=== PATIENT | male | born 2000 | race Two or more races ===

== ENCOUNTER 2020-04-17 23:42 | Inpatient (IN) | payer MEDICAID, OTHER ==
[~2020-04-17] VITALS: Ht 165.1 cm; Wt 72.1 kg
[2020-04-18] VITALS (10 sets, daily range): BP systolic 119–138; BP diastolic 35–71
[2020-04-18] MEDS ORDERED: SODIUM CHLORIDE 0.9% 2,000 ML IV ONE (00:30)
[2020-04-18] MEDS ORDERED: ETOMIDATE (2MG/ML) 20ML VIAL IV ONE ×2 (00:46)
[2020-04-18] MEDS ORDERED: SUCCINYLCHOLINE CHLORIDE 20 MG/ML 10ML VIAL IV ONE ×2 (00:46)
[2020-04-18] MEDS ORDERED: MIDAZOLAM HCL 1MG/1ML-2 ML VIAL ONE (00:49)
[2020-04-18] MEDS ORDERED: PROPOFOL 100 ML IV ONE (00:51)
[2020-04-18 01:06] LABS: Basophils # (auto) 0 10 ^3/uL (0-0.2); Eosinophils # (auto) 0 10 ^3/uL (0-0.8); Hemoglobin 16.8 g/dL (13.5-17.5); Monocytes # (auto) 0.6 10 ^3/uL (0-1.3); Monocytes % (auto) 4.2 % (0.0-12.0)
[2020-04-18 01:08] LABS: Basophils % (auto) 0.3 % (0.0-2.0); Eosinophils % (auto) 0.1 % (0.0-7.0); Lymphocytes # (auto) 1.6 10 ^3/uL (0.4-5.4); Lymphocytes % (auto) 10.5 % (10.0-50.0); Mean Corpuscular Hemoglobin 26.5 pg (28.0-32.0); Mean Corpuscular Hgb Conc. 32.9 g/dL (32.0-36.0); Mean Corpuscular Volume 80.5 fL (80.0-100.0); Neutrophils # (auto) 12.7 10 ^3/uL (1.6-8.6); Neutrophils % (auto) 84.9 % (37.0-80.0); Nucleated Red Blood Cells % 0.1 %; Platelet Count (auto) 378 10^3/uL (140-450); Red Blood Cells 6.33 10^6/uL (4.5-5.90); Red Cell Distribution Width 13.7 % (11.8-14.3)
[2020-04-18] MEDS ORDERED: SODIUM BICARBONATE 8.4 % INJ 50ML VIAL IV ONE (01:13)
[2020-04-18] MEDS ORDERED: SODIUM BICARBONATE INFANT SYR 10 ML SYRG IV ONE (01:14)
[2020-04-18] MEDS ORDERED: AMIODARONE 450mg/250ml AE 250 ML IV ONE (01:14)
[2020-04-18 01:17] LABS: Anion Gap 12 (5-15); BUN/Creatinine Ratio 6.5; Blood Alcohol < 3.0 mg/dL (0-5); Blood Urea Nitrogen 10 mg/dL (7-18); Calcium 10.1 mg/dL (8.5-10.1); Carbon Dioxide 20 mmol/L (21-32); Chloride 106 mmol/L (98-107); GFR African American 74 mL/min; GFR Non-African American 62 mL/min; Glucose 126 mg/dL (74-106); Potassium 4.4 mmol/L (3.5-5.1); Sodium 138 mmol/L (136-145)
[2020-04-18 01:18] LABS: Acetaminophen < 2.0 ug/mL (10-30); Salicylate < 1.7 mg/dL (2.8-20.0)
[2020-04-18] MEDS ORDERED: NOREPINEPHRINE 8 MG/250ML KIT 250 ML IV ONE (01:18)
[2020-04-18 01:20] LABS: Alanine Aminotransferase 84 U/L (16-61); Alkaline Phosphatase 123 U/L (45-117); Aspartate Aminotransferase 44 U/L (15-37); Bilirubin, Total 1.2 mg/dL (0.2-1.0)
[2020-04-18] MEDS ORDERED: ACTIVATED CHARCOAL 50 GM/240 ML SOL ONE (01:29)
[2020-04-18] MEDS ORDERED: ONDANSETRON HCL 4 MG/2 ML VIAL ONE (01:29)
[2020-04-18] MEDS ORDERED: EPINEPHrine HCL 1 MG/10 ML SYRG ONE (01:37)
[2020-04-18] MEDS ORDERED: MIDAZOLAM DRIP 50 mg/50mL 50 ML IV ONE (01:58)
[2020-04-18 01:59] LABS: Alcohol, Urine < 3.0 mg/dL (0-10); Amphetamine Screen, Urine POSITIVE (NEGATIVE); Barbiturate Scree,Urine NEGATIVE (NEGATIVE); Benzodiazephine Screen, Urine NEGATIVE (NEGATIVE); Cannabinoid Screen, Urine POSITIVE (NEGATIVE); Cocaine Screen, Urine NEGATIVE (NEGATIVE); Opiate Scree,Urine POSITIVE (NEGATIVE); Phencyclidine Screen, Urine NEGATIVE (NEGATIVE); Urine Bacteria FEW /hpf (None Seen); Urine Blood Negative /uL (Negative); Urine Hyaline Cast MOD /lpf (0 - 2); Urine Mucus FEW (None Seen); Urine Specific Gravity 1.021 (1.001-1.035); Urine WBC 2 /hpf (0 - 3)
[2020-04-18] MEDS ORDERED: MIDAZOLAM HCL 5 MG/ML-1ML VIAL ONE (01:59)
[2020-04-18] MEDS ORDERED: MIDAZOLAM HCL 5 MG/ML-1ML VIAL IV ONE (02:00)
[2020-04-18] MEDS ORDERED: PHENYLEPHRINE IV 250 ML IV ONE (02:00)
[2020-04-18] MEDS ORDERED: NOREPINEPHRINE 8 MG/250ML KIT 250 ML IV SCH (02:34)
[2020-04-18] MEDS ORDERED: AMIODARONE 450mg/250ml AE 250 ML IV SCH (02:45)
[2020-04-18] MEDS ORDERED: AMIODARONE HCL 150 MG in D5W 5% 100 ML IV ONE (02:45)
[2020-04-18] MEDS: PHENYLEPHRINE IV 250 ML IV SCH ×3 (03:19→18:39)
[2020-04-18] MEDS: MIDAZOLAM DRIP 50 mg/50mL 50 ML IV SCH (03:27)
[2020-04-18] MEDS: PROPOFOL 100 ML IV SCH (03:30)
[2020-04-18 03:41] LABS: INR 1.06 (0.9-1.15); Partial Thromboplastin Time 28.5 sec (23.64-32.05)
--- NOTE | 2020-04-18 04:44 | NUR ---
Respiratory note: RETURNED FROM CT AT THIS TIME. PLACED PT BACK ON VENT WITH ORIGINAL SETTINGS, NO COMPLICATIONS.
[2020-04-18 05:41] LABS: Salicylate < 1.7 mg/dL (2.8-20.0)
[2020-04-18 05:50] LABS: Acetaminophen < 2.0 ug/mL (10-30)
[2020-04-18] MEDS: fentaNYL Drip 2500mCg/250mlNS 250 ML IV SCH (06:30)
[2020-04-18] MEDS ORDERED: DOXYCYCLINE 100MG/250ML 250 ML IV ONE (06:45)
[2020-04-18] MEDS ORDERED: MORPHINE SULF INJ 2 MG/ML SYRINGE 1ML IV PRN ×2 (06:45)
[2020-04-18] MEDS ORDERED: ACETAMINOPHEN 500 MG TAB PO PRN (06:45)
[2020-04-18] MEDS ORDERED: NITROGLYCERIN 0.4 MG SL TAB SL PRN (06:45)
[2020-04-18 06:54] LABS: Hematocrit 50.7 % (41.0-53.0); Mean Corpuscular Hgb Conc. 31.6 g/dL (32.0-36.0); Mean Corpuscular Volume 82.3 fL (80.0-100.0); Platelet Count (auto) 355 10^3/uL (140-450); Red Blood Cells 6.16 10^6/uL (4.5-5.90); White Blood Cell 28.6 10^3/uL (4.4-10.8)
[2020-04-18 06:57] LABS: Basophils % (manual) 0 (0.0-2.0); Blast Cells 0; Eosinophils % (manual) 0 (0-7); Myelocytes % 0; Promyelocytes % 0; Reactive Lymphocytes 0
[2020-04-18 07:19] LABS: Alanine Aminotransferase 252 U/L (16-61); Albumin 3.9 g/dL (3.4-5.0); Anion Gap 7 (5-15); Aspartate Aminotransferase 240 U/L (15-37); BUN/Creatinine Ratio 6.9; Blood Alcohol < 3.0 mg/dL (0-5); Blood Urea Nitrogen 12 mg/dL (7-18); Calcium 8.1 mg/dL (8.5-10.1); Carbon Dioxide 23 mmol/L (21-32); Chloride 110 mmol/L (98-107); GFR African American 65 mL/min; GFR Non-African American 54 mL/min; Glucose 177 mg/dL (74-106); Potassium 4.7 mmol/L (3.5-5.1); Sodium 140 mmol/L (136-145)
[2020-04-18 07:29] LABS: Alkaline Phosphatase 113 U/L (45-117); Bilirubin, Total 1.4 mg/dL (0.2-1.0); Magnesium 3.6 mg/dL (1.6-2.6); Total Protein 7.3 g/dL (6.4-8.2)
[2020-04-18 07:50] LABS: Band Neutrophils % (manual) 1; Lymphocytes % (manual) 6 (10.0-50.0); Metamyelocytes % 1; Monocytes % (manual) 9 (0-12)
[2020-04-18] MEDS: ENOXAPARIN SOD 40 MG/0.4 ML SYRINGE SC SCH (10:00)
[2020-04-18] MEDS ORDERED: CHOLECALCIFEROL (VITD3) 1,000UNIT=25mCg TAB PO SCH (10:00)
[2020-04-18] MEDS ORDERED: ASCORBIC ACID 1,000 MG TAB PO SCH (10:00)
[2020-04-18] MEDS ORDERED: ZINC SULFATE 220mg CAP or TAB PO SCH (10:00)
[2020-04-18] MEDS ORDERED: cefTRIAXone 1GM/50ML D5W 50 ML IV SCH (10:00)
[2020-04-18] MEDS ORDERED: DOXYCYCLINE 100 MG TAB/CAP PO SCH (10:00)
[2020-04-18] MEDS ORDERED: ALBUTEROL SULF HFA 90MCG INH 200DOSE IN SCH (14:00)
[2020-04-18] MEDS ORDERED: ACETAMINOPHEN 650 mg PER 20 mL UD ONE (14:02)
[2020-04-18] MEDS ORDERED: ACETAMINOPHEN 650 mg PER 20 mL UD PO PRN (14:15)
[2020-04-18] MEDS ORDERED: DEXTROSE (50%) 50ML SYRG IV ONE (15:17)
[2020-04-18] MEDS ORDERED: AMIODARONE HCL (50 MG/ ML) 3 ML VIAL IV ONE (15:17)
[2020-04-18] MEDS ORDERED: CALCIUM CHLOR(10%) 100MG/ML 10ML SYRINGE IV ONE (15:17)
[2020-04-18] MEDS ORDERED: SODIUM BICARBONATE 8.4% INJ 50ML SYRINGE IV ONE (15:17)
[2020-04-18] MEDS ORDERED: EPINEPHrine HCL 1 MG/10 ML SYRG IV ONE (15:17)
--- NOTE | 2020-04-18 17:22 | NUR ---
WOUND CARE NOTE: Wound care in to see patient due to intubation status and low Wilver score of 12, putting patient to high risk for skin breakdown. Patient is 19 years old male with admitting diagnosis of Cardiac Arrest Secondary to Drug Overdose. Patient is resting in bed #6. Patient is intubated, and mechanically ventilated. Patient appears to be in no pain using Lu Varela Faces Pain Scale. Skin assessment done with the assistance of student nurse videotape editor. No wound, no pressure injury noted. Patient has rectal tube in placed with liquid stools in tubing and in collection bag, minimal leak noted to perirectal area. Selina care given, applied Sure prep skin protectant to lower buttocks and perirectal area. Care pad changed. Repositioned patient for comfort facing his Rt side, redistributed pressure points with pillows. CHARLEY Vazquez and student nurse videotape editor at bedside. RECOMMENDATION: Nursing to continue with BID/PRN cleaning and application of Sure prep skin protectant to buttocks, perirectal area as preventative, frequent turning and repositioning schedule as condition permits, redistribute pressure points with pillows, elevate heels on pillows, continue monitoring by wound care while patient is intubated and has Wilver score of <18. Addendum: 04/18/20 at 1824 by Arpita Taylor RN Amended: Links added.
--- NOTE | 2020-04-18 17:25 | NUR ---
ICU Bed/Hospital bed; Called nieves Ng and requested to bring ICU bed or hospital bed for patient. Per Berenice no ICU bed available at this time but she will bring hospital bed.
[2020-04-18] MEDS ORDERED: ALBUTEROL SULF 2.5 MG/0.5ML(0.5%) NEB SOLN NEB PRN (20:15)
[2020-04-18] MEDS: SODIUM CHLORIDE 0.9% 1,000 ML IV SCH (21:37)
[2020-04-18] MEDS: PANTOPRAZOLE 40 MG/10 ML VIAL INJ IV SCH (22:18)
[2020-04-18] MEDS: levoFLOXacin 750MG 150 ML IV SCH (22:27)
[2020-04-19] VITALS (12 sets, daily range): BP systolic 100–162; BP diastolic 49–90
[2020-04-19] MEDS: MIDAZOLAM DRIP 50 mg/50mL 50 ML IV SCH
[2020-04-19 00:39] LABS: Albumin 3.2 g/dL (3.4-5.0); BUN/Creatinine Ratio 7.8; Calcium 7.9 mg/dL (8.5-10.1); Potassium 4.1 mmol/L (3.5-5.1)
[2020-04-19 00:43] LABS: Bilirubin, Total 0.7 mg/dL (0.2-1.0); Total Protein 6.6 g/dL (6.4-8.2)
[2020-04-19] MEDS: fentaNYL Drip 2500mCg/250mlNS 250 ML IV SCH (05:20)
[2020-04-19 05:44] LABS: Eosinophils # (auto) 0 10 ^3/uL (0-0.8); Hemoglobin 17.6 g/dL (13.5-17.5); Lymphocytes # (auto) 1.3 10 ^3/uL (0.4-5.4)
[2020-04-19 05:45] LABS: Basophils # (auto) 0.1 10 ^3/uL (0-0.2); Basophils % (auto) 0.3 % (0.0-2.0); Eosinophils % (auto) 0.1 % (0.0-7.0); Hematocrit 55.4 % (41.0-53.0); Lymphocytes % (auto) 4.4 % (10.0-50.0); Mean Corpuscular Hemoglobin 26.4 pg (28.0-32.0); Mean Corpuscular Hgb Conc. 31.7 g/dL (32.0-36.0); Mean Corpuscular Volume 83.4 fL (80.0-100.0); Monocytes % (auto) 10.5 % (0.0-12.0); Neutrophils # (auto) 24.1 10 ^3/uL (1.6-8.6); Neutrophils % (auto) 84.7 % (37.0-80.0); Nucleated Red Blood Cells % 0.2 %; Platelet Count (auto) 223 10^3/uL (140-450); Red Blood Cells 6.64 10^6/uL (4.5-5.90); Red Cell Distribution Width 14.1 % (11.8-14.3); White Blood Cell 28.5 10^3/uL (4.4-10.8)
[2020-04-19 06:04] LABS: Albumin 3.2 g/dL (3.4-5.0); BUN/Creatinine Ratio 8.6; Calcium 8.6 mg/dL (8.5-10.1); Potassium 4.6 mmol/L (3.5-5.1)
[2020-04-19 06:07] LABS: Bilirubin, Total 0.8 mg/dL (0.2-1.0)
[2020-04-19] MEDS: PROPOFOL 100 ML IV SCH ×2 (06:44→20:00)
[2020-04-19] MEDS ORDERED: NS AE IV ONE (10:07)
[2020-04-19] MEDS ORDERED: PANTOPRAZOLE IV ONE (10:07)
[2020-04-19] MEDS: ENOXAPARIN SOD 40 MG/0.4 ML SYRINGE SC SCH (10:55)
[2020-04-19] MEDS: PANTOPRAZOLE 40 MG/10 ML VIAL INJ IV SCH (10:55)
[2020-04-19] MEDS ORDERED: VANCOMYCIN PER PHARMACY 0 MG IV SCH (12:00)
[2020-04-19] MEDS ORDERED: VANCOMYCIN 1GM/250ML 250 ML IV SCH (13:00)
[2020-04-19] MEDS: SODIUM CHLORIDE 0.9% 1,000 ML IV SCH ×2 (13:54→16:15)
[2020-04-19] MEDS ORDERED: ATROPINE SULF 1 MG/10ml SYR IV ONE (14:18)
[2020-04-19] MEDS ORDERED: MAGNESIUM SULF 50% 40 MEQ/10 ML VL IV ONE (14:18)
[2020-04-19] MEDS ORDERED: SODIUM BICARBONATE 8.4% INJ 50ML SYRINGE IV ONE (14:18)
[2020-04-19] MEDS ORDERED: LIDOCAINE 1% (LOCAL ANESTH.) PF 5ml SDV ID ONE (15:30)
--- NOTE | 2020-04-19 15:53 | NUR ---
PICC line placement Patient significant other educated on need for PICC line placement. All risks and benefits explained and all questions and concerns addressed prior to procedure. Noted past medical history and allergies with no contraindications. INR and Plt counts within acceptable range. 5 fr PICC line inserted via RIGHT BRACHIAL vein using [employer]'s [employer] US and Tip Location System. Sterile technique with maximum barrier precautions utilized. Blood return obtained from each of THE THREE lumens and each flushed easily with NS using proper technique. PICC secured with Stat-lock; biodisc and occlusive dressing applied. Stat portable chest x-ray obtained for PICC tip placement. *Baseline Arm Circumference 37 CM, INTERNAL LENGTH 41CM, EXTERNAL LENGTH 0CM. PICC lot # [id number]. Note:
--- NOTE | 2020-04-19 15:54 | NUR ---
OK to use PICC line Xray completed. PRIMARY RN NOTIFIED
[2020-04-19] MEDS: levoFLOXacin 750MG 150 ML IV SCH (20:00)
[2020-04-19] MEDS: SODIUM CHLOR 0.9% PF (SALINE LOCK) 10ML VIAL/SYR IV SCH (22:00)
[2020-04-20] VITALS (10 sets, daily range): BP systolic 101–147; BP diastolic 52–94
[2020-04-20] MEDS: MIDAZOLAM DRIP 50 mg/50mL 50 ML IV SCH ×3 (00:30→18:49)
[2020-04-20] MEDS: SODIUM CHLORIDE 0.9% 1,000 ML IV SCH ×3 (02:00→22:15)
[2020-04-20] MEDS: VANCOMYCIN 1GM/250ML 250 ML IV SCH ×2 (03:00→17:00)
[2020-04-20] MEDS: PROPOFOL 100 ML IV SCH ×4 (04:35→18:53)
[2020-04-20] MEDS: fentaNYL Drip 2500mCg/250mlNS 250 ML IV SCH (05:20)
[2020-04-20 07:55] LABS: Basophils # (auto) 0 10 ^3/uL (0-0.2); Lymphocytes # (auto) 1.6 10 ^3/uL (0.4-5.4); Mean Corpuscular Hemoglobin 26.6 pg (28.0-32.0); Platelet Count (auto) 109 10^3/uL (140-450)
[2020-04-20 07:57] LABS: Basophils % (auto) 0.4 % (0.0-2.0); Eosinophils # (auto) 0.1 10 ^3/uL (0-0.8); Eosinophils % (auto) 1.1 % (0.0-7.0); Hematocrit 42.1 % (41.0-53.0); Hemoglobin 13.8 g/dL (13.5-17.5); Lymphocytes % (auto) 12.5 % (10.0-50.0); Mean Corpuscular Hgb Conc. 32.8 g/dL (32.0-36.0); Mean Corpuscular Volume 81.1 fL (80.0-100.0); Monocytes # (auto) 0.9 10 ^3/uL (0-1.3); Monocytes % (auto) 7.5 % (0.0-12.0); Neutrophils # (auto) 9.9 10 ^3/uL (1.6-8.6); Neutrophils % (auto) 78.5 % (37.0-80.0); Nucleated Red Blood Cells % 0.2 %; Red Blood Cells 5.19 10^6/uL (4.5-5.90); White Blood Cell 12.5 10^3/uL (4.4-10.8)
[2020-04-20 08:14] LABS: Albumin 2.2 g/dL (3.4-5.0); Calcium 7.9 mg/dL (8.5-10.1); Potassium 3.7 mmol/L (3.5-5.1)
[2020-04-20 08:19] LABS: BUN/Creatinine Ratio 13.1; Bilirubin, Total 0.2 mg/dL (0.2-1.0); Total Protein 5.5 g/dL (6.4-8.2)
[2020-04-20] MEDS: PANTOPRAZOLE 40 MG/10 ML VIAL INJ IV SCH (10:00)
[2020-04-20] MEDS: SODIUM CHLOR 0.9% PF (SALINE LOCK) 10ML VIAL/SYR IV SCH ×2 (10:00→22:00)
[2020-04-20] MEDS: ENOXAPARIN SOD 40 MG/0.4 ML SYRINGE SC SCH (10:00)
--- NOTE | 2020-04-20 11:19 | NUR ---
assessment re: ss consult Patient is a 19 year old male on a vent in ER. Per ss consult please locate family. Per patients mother Lucia [phone] prior to admission patient lived home with her and was independent. Lucia informed me that patient told her he needed to get some sleep. Lucia seen patient had her diet pills from [place], Nyquil, and cough medicine in front of him. Per Lucia patient had took a hand full of her diet pills. She stated she didn't see him take the Nyquil or cough medicine, but it was in front of him. Lucia called 911 once patient stated he wasn't feeling well and was clutching his chest. Per Ba patient has issues with meth also. I asked Lucia if patient had said anything about wanting to hurt himself. Lucia stated she didn't know. I informed Lucia patient will need a tele psych once extubated and medically cleared. Lucia verbalized understanding. Addendum: 04/20/20 at 1626 by Chiquis MONTALVO Amended: Links added.
--- NOTE | 2020-04-20 12:35 | NUR ---
PT WAS PLACED ON CPAP WEANING TRIAL PER DR LE. PT ABLE TO UNDERSTAND AND FOLLOW INDICATIONS. PT TOLERATING WELL. WILL CONTINUE TO MONITOR PT.
[2020-04-20] MEDS ORDERED: DEXTROSE (50%) 50ML SYRG IV ONE (13:15)
--- NOTE | 2020-04-20 13:25 | NUR ---
PT SELF EXTUBATED. PT WAS PLACED ON 30% COOL MYST VIA AEROSOL MASK. PT TOLERATING WELL. 100% O2 SATS, HR 71 BPM, RR18 BPM. BS ARE SLIGHT INSPIRATORY COARSE TO AUSCULTATION. NO SOB OR ANY OTHER ACUTE DISTRESS NOTICED.
--- NOTE | 2020-04-20 18:40 | NUR ---
RT NOTE: PT APPEARS CONFUSED. PT ON ROOM AIR SPO2 98% HR 102, RR 20. NO TX INDICATED AT THIS TIME.
[2020-04-20] MEDS ORDERED: LORazepam 2MG/ML-1ML VIAL IV PRN ×2 (20:00→20:45)
--- NOTE | 2020-04-20 20:00 | NUR ---
REPORT RECEIVED AND ASSUMED CARE; SEE INTERVENTIONS FOR ASSESSMENT; VS STABLE AT THIS TIME; PT. IS PULLING AT LINES AND EQUIPMENT; RE-ORIENTED PATIENT TO HOSPITAL AND MITTENS APPLIED; PT. IS CONFUSED AND SHOUTING THAT WE ARE HOLDING HIM CAPTIVE AND LET HIM GO TO THE [facility] ST[facility]; HE WANTS TO GO WITH HIS MOM; WILL CONT. TO MONITOR.
[2020-04-20] MEDS: levoFLOXacin 750MG 150 ML IV SCH (20:15)
[2020-04-20] MEDS ORDERED: LORazepam 2MG/ML-1ML VIAL ONE (20:41)
--- NOTE | 2020-04-20 23:54 | NUR ---
PT. PULLED OUT PICC LINE; MITTENS APPLIED.
[2020-04-21] VITALS: BP_SYST 121; BP_SYST 129; BP_DIAS 55; BP_DIAS 76
[2020-04-21] MEDS ORDERED: ALPRAZolam 0.25 MG TAB ONE (00:58)
[2020-04-21 01:00] VITALS: BP 138/93
[2020-04-21] MEDS ORDERED: ALPRAZolam 0.25 MG TAB PO PRN (01:00)
--- NOTE | 2020-04-21 02:00 | NUR ---
NO VITALS FROM 0200 - 0600/ PT. PULLED OFF WIRES/NIBP/PULSE OX; PT. RESPONDING/RESTLESS/ANXIOUS/SCREAMING/CRYING; WILL CONT. TO MONITOR.
--- NOTE | 2020-04-21 04:33 | NUR ---
PT. HAVING TELE-PSYCH VIDEO CHAT WITH PSYCHIATRIST; RECOMMENDATION TO FOLLOW.
--- NOTE | 2020-04-21 06:00 | NUR ---
PT. PULLED OUT LT. EJ-CATHETER INTACT, PLACED DRESSING-GAUZE/TAPE.
--- NOTE | 2020-04-21 06:10 | NUR ---
Respiratory note: Assessed pt for prn medneb tx. HR 90, RR 23, SPO2 98% on room air. Pt sleeping, no s/s of distress. Medneb tx not indicated at this time. Noc shift RN at bedside, aware to call RT if needed.
[2020-04-21] MEDS: VANCOMYCIN 1GM/250ML 250 ML IV SCH (06:59)
[2020-04-21 08:10] VITALS: BP 132/92
[2020-04-21 08:37] LABS: Basophils # (auto) 0 10 ^3/uL (0-0.2); Eosinophils # (auto) 0.1 10 ^3/uL (0-0.8); Lymphocytes # (auto) 1.4 10 ^3/uL (0.4-5.4); Nucleated Red Blood Cells % 0.1 %; Platelet Count (auto) 96 10^3/uL (140-450)
[2020-04-21 08:40] LABS: Basophils % (auto) 0.1 % (0.0-2.0); Hematocrit 39.5 % (41.0-53.0); Hemoglobin 13.2 g/dL (13.5-17.5); Lymphocytes % (auto) 14.8 % (10.0-50.0); Mean Corpuscular Hemoglobin 26.8 pg (28.0-32.0); Mean Corpuscular Hgb Conc. 33.5 g/dL (32.0-36.0); Monocytes # (auto) 0.8 10 ^3/uL (0-1.3); Monocytes % (auto) 8.2 % (0.0-12.0); Neutrophils % (auto) 75.9 % (37.0-80.0); Red Blood Cells 4.94 10^6/uL (4.5-5.90); Red Cell Distribution Width 13.8 % (11.8-14.3); White Blood Cell 9.2 10^3/uL (4.4-10.8)
[2020-04-21 09:12] LABS: Albumin 2.9 g/dL (3.4-5.0); Calcium 8.6 mg/dL (8.5-10.1); Magnesium 2.3 mg/dL (1.6-2.6)
[2020-04-21 09:16] LABS: BUN/Creatinine Ratio 13.8; Bilirubin, Total 0.4 mg/dL (0.2-1.0); Total Protein 6.5 g/dL (6.4-8.2)
[2020-04-21 09:24] LABS: Potassium 2.9 mmol/L (3.5-5.1)
[2020-04-21] MEDS ORDERED: POTASSIUM EFFERVESENT TAB 25 MEQ GT ONE (09:45)
[2020-04-21] MEDS ORDERED: PANTOPRAZOLE 40 MG TAB PO ONE (09:45)
[2020-04-21] MEDS: ENOXAPARIN SOD 40 MG/0.4 ML SYRINGE SC SCH (09:47)
[2020-04-21] MEDS: PANTOPRAZOLE 40 MG/10 ML VIAL INJ IV SCH ×2 (09:48→11:32)
[2020-04-21] MEDS: SODIUM CHLOR 0.9% PF (SALINE LOCK) 10ML VIAL/SYR IV SCH ×2 (10:00→23:00)
[2020-04-21] MEDS: POTASSIUM CHL 20MEQ/100ML 100 ML IV SCH ×2 (11:00→13:00)
[2020-04-21] MEDS ORDERED: VANCOMYCIN 1GM/250ML 250 ML IV SCH (14:00)
[2020-04-21] MEDS ORDERED: POTASSIUM CHL 20MEQ/100ML 100 ML IV ONE (14:00)
[2020-04-21] MEDS: SOD CHL 0.9%/ KCL 20MEQ 1,000 ML IV SCH ×2 (14:00→23:00)
[2020-04-21] MEDS ORDERED: SOD CHL 0.9%/ KCL 20MEQ 1,000 ML IV ONE (14:15)
--- NOTE | 2020-04-21 14:49 | NUR ---
Nutrition Assessment Notes please see attached link for complete assessment Est [employer] needs BW 72 [id number] kcals (23-25 kcal/kgBW), Est Protein needs: 72-93 gms/day (1.0-1.3 gm/kgBW r/t severe hypoalb). Will continue to monitor and reassess prn. Addendum: 04/21/20 at [address] Amended: Links added.
[2020-04-21] MEDS ORDERED: POTASSIUM CHL 20 Meq TABLET PO ONE (17:00)
--- NOTE | 2020-04-21 21:20 | NUR ---
RT NOTE: PT ASSESSED FOR PRN BREATHING TX @ THIS TIME. TX NOT INDICATED. PT NOT SHOWING ANY S/S OF RESPIRATORY DISTRESS. CLEAR/DIMINISHED BS AUSCULTATED. PT ON ROOM AIR, ERG057%, HR 92, RR 20. PT WILL PAGE FOR RT IF TX IS NEEDED.
[2020-04-21] MEDS: levoFLOXacin 750MG 150 ML IV SCH (22:40)
--- NOTE | 2020-04-21 22:40 | NUR ---
Telemetry admit from ER FLACOCARLY admitted to Telemetry unit after SBAR received. Patient oriented to Umm Nicholson, primary RN, unit, room, bed, and unit policies regarding patient care and visiting hours. Patient now on continuous telemetry monitoring, tele box #66 and telemetry reading on arrival to unit is SR in the 60s. Patient placed on bedside oxygen, weighed by bedscale and encouraged to call if they need something. All questions and concerns addressed, patient verbalized understanding.
--- NOTE | 2020-04-21 23:00 | NUR ---
Radha rounding Dr. Garcia at patient bedside, received orders for repeat tele psych now that patient is awake and alert and patient is thinking of signing AMA. Order for social service consult to call patients credit or loans officer in regards to patient being hospitalized.
--- NOTE | 2020-04-21 23:39 | NUR ---
Call to ER Called ER to confirm scheduled 0 medication of Vancomycin was not administered. Awaiting call back.
[2020-04-21 23:45] VITALS: BP 109/60
--- NOTE | 2020-04-22 00:10 | NUR ---
Call to ER Second call to ER regarding administered medications prior to admission. Per nurse, medication had been running since start of shift.
--- NOTE | 2020-04-22 00:10 | NUR ---
Tele psych computer Tele psych computer currently being used by other RN. Will begin tele psych when RN is finished.
--- NOTE | 2020-04-22 00:34 | NUR ---
Called pharmacy re chencho Called pharmacy regarding missed 22:00 dose of Vancomycin as patient was not up on floor at this time, after verification that medication was never given, medication rescheduled for 01:00. Will administer medication at that time.
[2020-04-22] MEDS: VANCOMYCIN 1GM/250ML 250 ML IV SCH ×3 (01:05→17:04)
[2020-04-22] MEDS ORDERED: TRAZ100T3 PO (01:48)
--- NOTE | 2020-04-22 04:08 | NUR ---
Initiated tele psych. Patient informed and verbalized understanding of MD requesting repeat tele psych consult. Awaiting call.
--- NOTE | 2020-04-22 05:04 | NUR ---
Tele psych consult completed. Awaiting report.
[2020-04-22 05:42] VITALS: BP 116/73
[2020-04-22 05:42] LABS: Basophils # (auto) 0 10 ^3/uL (0-0.2); Basophils % (auto) 0.3 % (0.0-2.0); Eosinophils # (auto) 0.3 10 ^3/uL (0-0.8); Eosinophils % (auto) 3.1 % (0.0-7.0); Hematocrit 43.5 % (41.0-53.0); Hemoglobin 14.4 g/dL (13.5-17.5); Lymphocytes # (auto) 1.7 10 ^3/uL (0.4-5.4); Lymphocytes % (auto) 20.8 % (10.0-50.0); Mean Corpuscular Hemoglobin 26.5 pg (28.0-32.0); Mean Corpuscular Hgb Conc. 33.1 g/dL (32.0-36.0); Mean Corpuscular Volume 80.1 fL (80.0-100.0); Monocytes # (auto) 0.9 10 ^3/uL (0-1.3); Monocytes % (auto) 10.6 % (0.0-12.0); Neutrophils # (auto) 5.4 10 ^3/uL (1.6-8.6); Neutrophils % (auto) 65.2 % (37.0-80.0); Nucleated Red Blood Cells % 0.1 %; Platelet Count (auto) 134 10^3/uL (140-450); Red Blood Cells 5.43 10^6/uL (4.5-5.90); Red Cell Distribution Width 13.4 % (11.8-14.3); White Blood Cell 8.3 10^3/uL (4.4-10.8)
[2020-04-22 06:06] LABS: Albumin 2.9 g/dL (3.4-5.0); Calcium 8.6 mg/dL (8.5-10.1); Potassium 3.8 mmol/L (3.5-5.1)
[2020-04-22 06:33] LABS: BUN/Creatinine Ratio 15.6; Bilirubin, Total 0.4 mg/dL (0.2-1.0); Total Protein 6.9 g/dL (6.4-8.2)
--- NOTE | 2020-04-22 06:47 | NUR ---
Received tele psych report. Patient DTS.
--- NOTE | 2020-04-22 08:00 | NUR ---
OPENING SHIFT NOTE ASSUMED CARE OF PATIENT AWAKE AND ALERT. NO S/S OF DISTRESS NOTED OR COMPLAINTS OF PAIN. PATIENT STATES HE HAS NO SI OR HI AT THIS TIME. PATIENT UPDATED ON POC FOR THE DAY AND ALL QUESTIONS ANSWERED. BED IS IN LOWEST, LOCKED POSITION WITH SIDE RAILS UP X2 AND CALL LIGHT WITHIN REACH. WILL CONTINUE TO MONITOR Q1H AND PRN.
[2020-04-22 09:00] VITALS: BP 120/79
--- NOTE | 2020-04-22 09:05 | NUR ---
RT NOTE: PRN BREATHING TX. NOT INDICATED AT THIS TIME. NO S/S OF RESPIRATORY DISTRESS NOTED. PT. HR 82, RR 14, POX 100% R/A. PT. AWARE TO NOTIFY RN IF BREATHING TX. IS NEEDED.
[2020-04-22] MEDS: SOD CHL 0.9%/ KCL 20MEQ 1,000 ML IV SCH ×3 (09:14→22:49)
[2020-04-22] MEDS: POTASSIUM CHL 20 Meq TABLET PO SCH (10:14)
[2020-04-22] MEDS: PANTOPRAZOLE 40 MG TAB PO SCH (10:15)
[2020-04-22] MEDS: ENOXAPARIN SOD 40 MG/0.4 ML SYRINGE SC SCH (10:16)
[2020-04-22 13:32] VITALS: BP 128/72
--- NOTE | 2020-04-22 15:27 | NUR ---
re-assessment I spoke with patient today and he informed me that he was trying to sleep. Patient stated he did take his mothers pill thinking that they were sleeping pills. Patient informed me he wants to go home and go to work. Patient stated he knows taking pills that were no prescribed to him is wrong and will not do it again. Patient informed me he is not suicidal or homicidal. I informed patient a tele psych recommendation will be done and possible . I will provide patient with resources for behavioral health and crisis center. Addendum: 04/22/20 at 1530 by Chiquis MONTALVO Amended: Links added.
--- NOTE | 2020-04-22 15:31 | NUR ---
re-assessment Per consult contact patients youth officer to notify of hospitalization. Patient informed me he has already spoken to his youth officer and I do not need to notify. Addendum: 04/22/20 at 1532 by Chiquis Cortez Amended: Links added.
[2020-04-22] MEDS ORDERED: LEVO250T69 PO (19:40)
--- NOTE | 2020-04-22 20:00 | NUR ---
assumed care, pt. awake, no c/o pain, not in distress.
[2020-04-22 22:00] VITALS: BP 110/47
--- NOTE | 2020-04-23 05:20 | NUR ---
[facility] Still aware of patient and would be glad to assist with bed placement. Once ready fax intake paperwork to [phone]
[2020-04-23] MEDS: SOD CHL 0.9%/ KCL 20MEQ 1,000 ML IV SCH ×2 (05:30→15:49)
[2020-04-23 05:50] VITALS: BP 118/71
[2020-04-23 09:00] VITALS: BP 110/66
[2020-04-23] MEDS: POTASSIUM CHL 20 Meq TABLET PO SCH (09:54)
[2020-04-23] MEDS: PANTOPRAZOLE 40 MG TAB PO SCH (09:54)
[2020-04-23] MEDS: ENOXAPARIN SOD 40 MG/0.4 ML SYRINGE SC SCH (09:55)
[2020-04-23] MEDS ORDERED: levoFLOXacin 250 MG TAB PO SCH (10:00)
--- NOTE | 2020-04-23 12:38 | NUR ---
Nutrition Followup Note Wt 72.1kg Pt is currently awaiting transfer to psychiatric facility. Pt presents per H/P s/p taking a handful of wt loss pills. Pt appetite is good aeb pt with 100% po intake of 1 recorded meal per RN notes. Est Energy needs BW 72 [id number] kcals (23-25 kcal/kgBW), Est Protein needs: 72-93 gms/day (1.0-1.3 gm/kgBW r/t severe hypoalb). Will continue to monitor and reassess prn. Labs: Alb 2.9L BM: pt with 6 BMs 04/23 per RN note Skin: BS 21 low risk, full details in overnight caregiver note PES: Altered nutrition related lab values r.t current chronic medical condition aeb hypocalcemia, severe hypoalb Comments 1) Pt diet advanced to regular 04/21 with 1 meal of 100% recorded 04/22 per Rn note 2) consider prostat 1 packet bid 3) continue current plan of care Expected Outcomes/Goals: pt will advance and soniya po F/u mod 3-5 days
[2020-04-23 13:00] VITALS: BP 114/60
[2020-04-23 17:00] VITALS: BP 123/62
--- NOTE | 2020-04-23 17:00 | NUR ---
CLEARANCE CARDIOLOGY AND PULMONOLOGY CLEARANCE OBTAINED.
--- NOTE | 2020-04-23 17:08 | NUR ---
AT BEDSIDE DR Neel ALFARO AT BEDSIDE UPDATING PATIENT ON POC. ORDERS GIVEN FOR A THIRD TELEPSYCH. WILL CARRY OUT AND CONTINUE CARE.
--- NOTE | 2020-04-23 17:24 | NUR ---
TELEPSYCH CONSULT CALLED IN TO [phone]. TELEPSYCH MACHINE PLACED IN PATIENT'S ROOM AND PATIENT MADE AWARE.
== END 2020-04-23 19:00 | disposition home or self-care (01) | DRG 812 ==
LOC: EDBD 23:42 → ER 23:55 → TELE 23:56 → TELE-WESTW 04-21 22:41
PROVIDERS: ADMIT Hospitalist; ATTEND Internal Medicine
PROC: 5A12012 Performance of Cardiac Output, Single, Manual (ICD-10-PCS; 2020-04-17)
PROC: 5A1945Z Respiratory Ventilation, 24-96 Consecutive Hours (ICD-10-PCS; principal; 2020-04-18)
PROC: 0BH17EZ Insertion of Endotracheal Airway into Trachea, Via Natural or Artificial Opening (ICD-10-PCS; 2020-04-18)
PROC: 02HV33Z Insertion of Infusion Device into Superior Vena Cava, Percutaneous Approach (ICD-10-PCS; 2020-04-19)
PROC: B548ZZA Ultrasonography of Superior Vena Cava, Guidance (ICD-10-PCS; 2020-04-19)
DX: T50.901A Poisoning by unspecified drugs, medicaments and biological substances, accidental (unintentional), initial encounter (principal); T46.0X1A Poisoning by cardiac-stimulant glycosides and drugs of similar action, accidental (unintentional), initial encounter; A41.9 Sepsis, unspecified organism; J69.0 Pneumonitis due to inhalation of food and vomit; I46.8 Cardiac arrest due to other underlying condition; J96.01 Acute respiratory failure with hypoxia; F15.10 Other stimulant abuse, uncomplicated; F12.10 Cannabis abuse, uncomplicated; R65.21 Severe sepsis with septic shock; F20.9 Schizophrenia, unspecified; N39.0 Urinary tract infection, site not specified; I48.91 Unspecified atrial fibrillation; I21.A1 Myocardial infarction type 2; I47.2 Ventricular tachycardia; I80.8 Phlebitis and thrombophlebitis of other sites; G93.40 Encephalopathy, unspecified; E87.2 Acidosis; N17.9 Acute kidney failure, unspecified; M62.82 Rhabdomyolysis; E87.6 Hypokalemia; E86.9 Volume depletion, unspecified; Z20.828 Contact with and (suspected) exposure to other viral communicable diseases; F15.129 Other stimulant abuse with intoxication, unspecified; Y92.89 Other specified places as the place of occurrence of the external cause
CPT/HCPCS: 36415; 36569; 36600; 70450; 71045; 71250; 74018; 76700; 80053; 80162; 80202; 80307; 80320; 80329; 81001; 82550; 82728; 82805; 83615; 83735; 83880; 84132; 84443; 84484; 85007; 85025; 85027; 85610; 85730; 86141; 87040; 87070; 87081; 87086; 87205; 87804; 87880; 92950; 93005; 93306; 94002; 94003; 94640; C9113; G0378; J0330; J0696; J1956; J2250; J2405; J2704; J3490; J7060

== ENCOUNTER 2024-06-27 16:41 | Emergency (ER) | payer MEDICAID ==
[~2024-06-27] VITALS: Ht 167.6 cm; Wt 84.2 kg
[~2024-06-27 16:41] MED LIST: CYCL-839 PO; IBUP-1455 PO; LEVO250T58 PO
[2024-06-27] MEDS ORDERED: AMOX875T4 PO (19:54)
[2024-06-27] MEDS: TETANUS-DIPTH-ACEL PERTUSSIS 0.5ML SYR Tdap IM ONE (20:36)
[2024-06-27 20:41] VITALS: BP 114/82; PULSE 92; RESP 19; TEMP 98.8; O2SAT 98
== END 2024-06-27 20:43 | disposition home or self-care (01) ==
LOC: ER 16:41
DX: S81.812A Laceration without foreign body, left lower leg, initial encounter (principal); F15.10 Other stimulant abuse, uncomplicated; X58.XXXA Exposure to other specified factors, initial encounter; Y93.01 Activity, walking, marching and hiking; Y92.89 Other specified places as the place of occurrence of the external cause; Y99.8 Other external cause status
CPT/HCPCS: 12002; 73590; 90471; 90715

== ENCOUNTER 2024-06-30 11:28 | Emergency (ER) | payer MEDICAID ==
[~2024-06-30] VITALS: Ht 170.2 cm; Wt 85.1 kg
[~2024-06-30 11:28] MED LIST changes: +AMOX875T4 PO
[2024-06-30 12:49] VITALS: BP 129/94; PULSE 96; RESP 18; TEMP 97.8; O2SAT 97
[2024-06-30] MEDS: cefTRIAXone W LIDOCAINE 1 GM IM IM ONE (13:30)
[2024-06-30] MEDS ORDERED: cefTRIAXone SOD 500 MG VL IM ONE (13:45)
[2024-06-30] MEDS: LIDOCAINE 1% HCL (LOCAL ANESTH.) INJ 20ML MDV IJ ONE (14:00)
[2024-06-30] MEDS: cefTRIAXone SOD 1,000 MG VL IM ONE (14:09)
== END 2024-06-30 14:53 | disposition home or self-care (01) ==
LOC: ER 11:28
DX: L03.116 Cellulitis of left lower limb (principal); F15.10 Other stimulant abuse, uncomplicated; Z88.1 Allergy status to other antibiotic agents; Z79.2 Long term (current) use of antibiotics; W54.0XXA Bitten by dog, initial encounter; Y93.89 Activity, other specified; Y92.89 Other specified places as the place of occurrence of the external cause; Y99.8 Other external cause status
CPT/HCPCS: 96372; 99284; J0696; J2001

== ENCOUNTER 2024-07-12 12:44 | Emergency (ER) | payer MEDICAID ==
[~2024-07-12] VITALS: Ht 170.2 cm; Wt 86.1 kg
[2024-07-12 13:40] VITALS: BP 106/68; PULSE 90; RESP 18; O2SAT 97
[2024-07-12] MEDS: cefTRIAXone SOD 1,000 MG VL IM ONE (14:45)
[2024-07-12] MEDS ORDERED: CEPH500C PO (15:13)
[2024-07-12] MEDS ORDERED: BACDST PO (15:13)
== END 2024-07-12 15:29 | disposition home or self-care (01) ==
LOC: ER 12:44
DX: S81.812D Laceration without foreign body, left lower leg, subsequent encounter (principal); L08.9 Local infection of the skin and subcutaneous tissue, unspecified; F15.10 Other stimulant abuse, uncomplicated; X58.XXXD Exposure to other specified factors, subsequent encounter
CPT/HCPCS: 96372; 99283; J0696